=== PATIENT | female | born 1960 | race Caucasian/White ===

== ENCOUNTER 2016-10-05 19:27 | Emergency (ER) | payer MEDICARE, MEDICAID ==
[2016-10-05 19:50] VITALS: BP 171/109
[2016-10-05] MEDS ORDERED: KETOROLAC TROMETHAMINE 60 MG/2 ML VIAL IM ONE ×2 (20:36→20:38)
--- NOTE | 2016-10-05 20:39 | ERNOTE ---
Upper Extremity HPI - Narrative Date of Service: 10/05/16 - General Extremities Pain Location: shoulder: left Time Seen by Provider: 10/05/16 20:21 Source: patient - Immun/Allergies/Home Medications Immunizations: IMMUNIZATION HX Immunizations Up to Date Yes History of Influenza Vaccine No Hx Pneumococcal Vaccination No Allergies/Adverse Reactions: Allergies Allergy/AdvReac Type Severity Reaction Status Date / Time coconut oil Allergy Severe Hives Verified 10/05/16 19:51 peanut Allergy Severe Hives Verified 10/05/16 19:51 tetracycline [Tetracycline] Allergy Severe Hives Verified 10/05/16 19:51 lamotrigine [From Lamictal] Allergy Unknown Verified 10/05/16 19:51 tramadol HCl [From Ultram] Allergy Unknown Other Verified 10/05/16 19:51 Home Medications: HOME MEDICATIONS Budesonide/Formoterol Fumarate [Symbicort 160-4.5 Mcg Inhaler] 2 puff IH BID [Last Taken Unknown] Propranolol HCl [Innopran Xl] 120 mg PO HS 09/23/15 [Last Taken Unknown] Alprazolam [Alprazolam ER] 2 mg PO BID 11/03/15 [Last Taken Unknown] Albuterol Sulfate [Ventolin HFA] 2 puff IH Q4H PRN #1 inhaler 04/13/16 [Last Taken Unknown] - History of Present Illness Narrative: 55-year-old female with a history of multiple visits to the emergency department for various pain syndromes. She states that she is now having tremendous pain in her left shoulder. She states that she has had a history of rotator cuff tears and repairs and it feels the same. She states she had a cortisone injection done a couple days ago in the office but it hasn't helped and she is requesting something for pain. She says she'll be talking to her orthopedic surgeon on Friday. she states that she is allergic to Toradol and that she doesn't do well with Nubain but does not give a suggestion as to what she would like. This pain has been ongoing for the past 3 weeks and I explained to the patient that we do not write prescriptions for pain medication for chronic pain but I would give her an injection this evening Occurred: other - 3 weeks Location of Incident: home Severity: severe - subjective finding. Patient in tears Method of Injury: Reports: other - overuse working on a house doing drywall and swinging a slug hammer Other Injuries: Reports: none Prior Treament: Reports: treated by physician - corticone injection a couple of days ago Review of Systems - Review of Systems Constitutional: Present: no symptoms reported EYE: Present: no symptoms reported ENT: Present: no symptoms reported Respiratory: Present: no symptoms reported Cardiology: Present: no symptoms reported Gastrointestinal/Abdominal: Present: no symptoms reported Genitourinary: Present: no symptoms reported Musculoskeletal: Present: See HPI Skin: Present: no symptoms reported Neurological: Present: no symptoms reported Endocrine: Present: no symptoms reported Hematologic/Lymphatic: Present: no symptoms reported Psych: Present: no symptoms reported - Patient's Past Medical History Patient History - Medical: Alcohol Abuse, Anxiety, Bipolar, Depression, Liver Disease, Migraines Patient History - Cardiac/Respiratory: Asthma, COPD, Hypertension Patient History - Cancer: No Hx of Cancer Patient History - Surgical Procedures: Cholecystectomy, Total Knee Replacement, Other LMP (females 10-50): Menopausal - Social History Living Situations: home Alcohol Use: heavy Drug Use: marijuana Physical Exam - Physical Exam General Appearance: Present: alert, moderate distress Eye Exam: Normal inspection: bilateral, PERRL: bilateral Ears, Nose, Throat: Present: normal ENT inspection, hearing grossly normal, normal pharynx Neck: Present: normal inspection, nontender Respiratory: Present: no respiratory distress, normal breath sounds, no accessory muscle use, chest nontender, lungs clear Cardiovascular/Chest: Present: regular rate, rhythm, no murmur, normal peripheral pulses Gastrointestinal/Abdominal: Present: normal bowel sounds, nontender, nondistended, soft, no organomegaly Rectal Exam: Present: deferred Back Exam: Present: normal inspection, normal range of motion, no CVA tenderness , no vertebral tenderness Extremity Exam: Present: normal inspection, decreased range of motion - and pain in left shoulder Neurological Exam: Present: alert, oriented, normal mood/affect, no motor/ sensory deficits Skin Exam: Present: normal color, warm/dry Lymphatic Exam: Present: no adenopathy ED Progress - Vital Signs Vital Signs: Vital Signs 10/05/16 19:42 Temperature 36.5 C Pulse Rate 97 Respiratory 16 Rate Blood Pressure 171/109 O2 Sat by Pulse 99 Oximetry - Progress/Reassessment Chief Complaint: Upper Extremity Injury/Problem Plan - Plan Plan: Patient originally told us he was allergic to Toradol but it turns out she says she can't take it because she was on Celexa but she is no longer taking her medication. She has not had an allergic reaction to Toradol and therefore will give her 60 mg IM Departure Clinical Impression: Left shoulder pain Qualifiers: Chronicity: chronic Qualified Code(s): M25.512 - Pain in left shoulder; G89.29 - Other chronic pain - Departure Disposition: Home self-care Condition: Fair Instructions: Impingement Syndrome, Rotator Cuff, Bursitis With Rehab-SportsMed Additional Instructions: contact Dr. Chowdary on Friday as planned Referrals: Giovany Alexandra MD [Primary Care Provider] -
== END 2016-10-05 20:50 | disposition home or self-care (01) ==
LOC: ER 19:27
DX: M25.512 Pain in left shoulder (principal); G89.29 Other chronic pain; Z78.0 Asymptomatic menopausal state; Z90.49 Acquired absence of other specified parts of digestive tract; Z96.659 Presence of unspecified artificial knee joint; J44.9 Chronic obstructive pulmonary disease, unspecified; I10 Essential (primary) hypertension; F41.9 Anxiety disorder, unspecified

== ENCOUNTER 2016-11-20 09:18 | Day surgery (SDC) | payer MEDICARE, MEDICAID ==
[~2016-11-20 09:18] MED LIST: ACETAMINOPHEN 500 MG TABLET PO PRN; HYDROmorphone HCL 2 MG/ML VIAL IV PRN; MAG HYDROX/ALUMINUM HYD/SIMETH 30 ML UDC PO PRN; MAGNESIUM HYDROXIDE 30 ML UDC PO PRN; ONDANSETRON HCL/PF 2 MG/ML VIAL IV PRN; PROMETHAZINE HCL 25 MG in DEXTROSE 5 % IN WATER 50 ML IV PRN; RINGERS SOLUTION,LACTATED 1,000 ML IV PRN; ZOLPIDEM TARTRATE 5 MG TABLET PO PRN; ceFAZolin SODIUM 1 GM VIAL IV PRN; diphenhydrAMINE HCL 50 MG/ML VIAL IV PRN; oxyCODONE HCL/ACETAMINOPHEN 1 TAB TABLET PO PRN
--- OUTSIDE RECORDS SUMMARY | 2016-11-20 09:22 | XMS REPORT | Continuity of Care Document ---
:1960 Author Organization [facility] ([facility]) Address [address] [place] [address] Phone [phone] Care Team Providers Name Role Phone Giovany Good Primary Care Provider [phone] Source Comments This disclosure is being made pursuant to the Care Everywhere program, applicable federal and state laws, and may not contain all informaitonavailable regarding this patient.[facility] ([facility]) Active Allergies and Adverse Reactions Allergen Noted Date Severity Reactions Comments Tetracycline Urticaria (Hives) Tramadol Hcl OTHER causes pt to fall asleep Current Medications Prescription Sig. Disp. Refills Start Date End Date Status albuterol Use 2 Puffs by 2 Inhaler 1 07/25/2011 Active (PROVENTIL, inhalation every 6 VENTOLIN) 90 hours as needed. mcg/Actuation Indications: inhaler Bronchial Asthma rOPINIRole 2 mg Take 2 mg by mouth Active tablet at bedtime as needed topiramate 100 mg Take 200 mg by Active tablet mouth 2 times daily propranolol 120 mg Take 120 mg by Active XR capsule mouth at bedtime SYMBICORT 160-4.5 Use 1 Puff by 11 07/05/2015 Active mcg/Actuation inhalation daily inhaler ALPRAZolam 2 mg Take 1 tablet by 5 02/10/2016 Active tablet mouth 2 times daily. omeprazole 20 mg Take 2 capsules 180 capsule 3 03/07/2016 Active enteric coated (40 mg total) by capsule mouth daily. 30 minutes before a meal Active Problems Problem Noted Date Diarrhea 06/15/2013 Hypokalemia 06/15/2013 HTN (hypertension) 06/25/2011 Hepatitis C GT 1 Peg 90, Riba 600 Boceprevir 06/25/2011 Overview: Formatting of this note may be different from the original. 11/30/2012 09:35 01/12/2013 6 w (BCV started) 02/09/2013 10 W HCV QUANT, LOG IU/mL 5.83 4.70 POS<1.63 RI 6 WEEK lead in, BCV week 4-24 (24 weeks) HCV GENOTYPINGGenotype: 1 07/16/2012 Lab Results Component Value Date HEPC REACTIVE* 04/03/2010 HEPC REACTIVE* 10/01/2001 Last Assessment & Plan: She will continue Boceprevir Pegasys and Ribavirin till week 36 and RI till w 48 Depressive disorder, not elsewhere classified 03/25/2002 Resolved Problems Problem Noted Date Resolved Date Knee pain 11/16/2012 04/20/2013 Shoulder pain 11/16/2012 04/20/2013 Right shoulder pain 07/26/2011 04/20/2013 Menorrhagia 06/25/2011 04/20/2013 Restless legs 06/25/2011 04/20/2013 Constipation 06/25/2011 04/20/2013 Dental caries 03/08/2011 06/25/2011 Dental abscess 03/08/2011 04/20/2013 PAIN IN LIMB 04/03/2010 04/20/2013 Other physical therapy 02/27/2010 02/27/2010 PAIN IN LIMB 02/27/2010 02/27/2010 CLASSICAL MIGRAINE INTRACTABLE 03/25/2002 04/20/2013 ROTATOR CUFF SYND NOS 12/09/2001 04/20/2013 ARTHROPATHY NOS-SHLDER 11/18/2001 04/20/2013 Most Recent Encounters Date Type Specialty Providers Description 10/07/2016 Office Visit Med GI/Hepatology Sayra, Dx: Chronic MD Prasanna hepatitis C without hepatic coma 10/07/2016 Hospital Encounter Radiology Giovany Amador MD Dx: Chronic hepatitis C without hepatic coma 10/07/2016 Telephone Med GI/Hepatology Sayra, Dx: Elevated liver MD Prasanna enzymes (Primary Dx) 09/16/2016 Office Visit Med GI/Hepatology Sayra, Chief Comp: Patient MD Prasanna Reported Reason For Visit Immunizations Name Dates Previously Given Next Due Hep A-Hep B (Twinrix) 05/10/2010 Hepatitis A, adult 09/15/2009 Hepatitis B, adult 11/17/2009,09/15/2009 Influenza, quadrivalent PF 08/10/2013 Social History Tobacco Use Types Packs/Day Years Used Date Current Every Day Smoker Cigarettes 0.5 41 Smokeless Tobacco: Never Used Tobacco Cessation:Ready to Quit: No; Counseling Given: Yes Comments: Alcohol Use Drinks/Week oz/Week Comments Yes quit 11/2012 Last Filed Vital Signs Vital Sign Reading Time Taken Blood Pressure 152/102 10/07/2016 9:08 AM [employer] Pulse 80 10/07/2016 9:08 AM [employer] Temperature 36.6 C (97.9 F) 10/07/2016 9:08 AM [employer] Respiratory Rate 18 07/19/2015 4:36 PM CDT Height 1.651 m (5' 5") 10/07/2016 9:08 AM [employer] Weight 74.25 kg (163 lb 11.1 oz) 10/07/2016 9:08 AM [employer] Body Mass Index 27.24 10/07/2016 9:08 AM [employer] Oxygen Saturation 98% 07/19/2015 4:36 PM CDT Plan of Care Date Type Specialty Providers Description 02/10/2017 Appointment Med GI/Hepatology Prasanna Colbert, Subj: Appointment Scheduled [address] [place] [address] [phone] (Fax) Health Maintenance Due Date Last Done Comments Tdap Vaccine 1969 MMR Vaccine 1976 Pneumococcal Vaccine (1 of 1 1977 - PPSV23) Hepatitis B Vaccine (3 of 3 07/05/2010 05/10/2010, - Primary Series) 11/17/2009, 09/15/2009 Cervical Cancer Screening 06/25/2014 06/25/2011, 10/14/2001 Influenza Vaccine: Seasonal 04/29/2016 08/10/2013 (#1) Mammogram 06/02/2016 06/02/2015, Additional history exists 06/02/2015 (Previously completed), 06/25/2011 Lipid Disorder Screening 04/20/2018 04/20/2013, Additional history exists 03/12/2011, 03/28/2009 Td Vaccine 03/12/2019 03/12/2009 (Previously completed) Colonoscopy 07/19/2025 07/19/2015 HCV Screening Completed 04/03/2010, 10/01/2001 Results from Last 3 Months ALPHA-FETOPROTEIN (10/07/2016 9:02 AM) Component Value Range AFP 10.0(H) 0.0-9.0 ng/mL Specimen Blood BASIC METABOLIC PANEL (W/ CALCIUM TOTAL) (10/07/2016 9:02 AM) Component Value Range Sodium 139 135-145 mEq/L Potassium 3.6 3.5-5.0 mEq/L Chloride 99 95-107 mEq/L CO2 27 22-29 mEq/L Anion Gap 13 8-18 mEq/L BUN 9(L) 10-20 mg/dL Creatinine 0.8Comment: 0.5-1.0 mg/dL Creatinine switched to enzymatic method on 02/05/2011.GFR equation switched to IDMS-traceable MDRD equation on 02/05/2011. Calculated GFR values are not valid in clinical settings where serum creatinine is changing. Glucose 80Comment: 65-99 mg/dL The Expert Committee on the Diagnosis and Classification of Diabetes has defined impaired fasting glucose as greater than or equal to 100 mg/dL but less than 126 mg/dL.(Diabetes Care 28 (Suppl 1)S41,2005) Calcium 9.1 8.5-10.5 mg/dL Calculated GFR 74 >60 mL/min/1.73 m2 Specimen Blood TOTAL PROTEIN (10/07/2016 9:02 AM) Component Value Range Total Protein 6.7 6.0-8.0 g/dL Specimen Blood ALBUMIN (10/07/2016 9:02 AM) Component Value Range Albumin 3.8 3.4-4.8 g/dL Specimen Blood LACTATE DEHYDROGENASE (LDH) (10/07/2016 9:02 AM) Component Value Range LDH 261(H) 135-214 U/L Specimen Blood GAMMA GLUTAMYLTRANSPEPTIDASE (10/07/2016 9:02 AM) Component Value Range GGT 106(H) 5-36 U/L Specimen Blood ALKALINE PHOSPHATASE (10/07/2016 9:02 AM) Component Value Range ALP 136(H) 35-104 U/L Specimen Blood BILIRUBIN, TOTAL (10/07/2016 9:02 AM) Component Value Range Bilirubin Total 0.7 <=1.2 mg/dL Specimen Blood BILIRUBIN, DIRECT (10/07/2016 9:02 AM) Component Value Range Bilirubin, Direct 0.2 0.0-0.2 mg/dL Specimen Blood ALANINE AMINOTRANSFERASE (10/07/2016 9:02 AM) Component Value Range ALT 115(H)Comment: 0-33 U/L The upper limit of normal for alanine aminotransferase (ALT) reference ranges for adults is controversial with some authorities recommending limit as low as 30 U/L for males and 19 U/L for females. Th ere is increased incidence of subclinical liver disease (e.g., early steatohepatitis) in patients with ALT values in the range of 31-41 U/L for males and 20-33 U/L for females. ALT values should alway s be interpreted in conjunction with clinical history, physical examination findings, and, if applicable, data from other diagnostic tests. Specimen Blood ASPARTATE AMINOTRANSFERASE (10/07/2016 9:02 AM) Component Value Range AST 85(H)Comment: 0-32 U/L Adult reference ranges updated on 08/24/13 at 830am Specimen Blood PT/INR (PROTHROMBIN TIME/INR) VENOUS (10/07/2016 9:02 AM) Component Value Range PT (Prothrombin Time) 12 9-12 secs INR 1.2 <4.0 Specimen Blood CBC (COMPLETE BLOOD COUNT) (10/07/2016 9:02 AM) Component Value Range WBC Count 13.3(H) 3.7-10.5 K/MM3 RBC Count 5.37(H) 4.00-5.20 M/MM3 Hemoglobin 15.6(H) 11.9-15.5 g/dL Hematocrit 47 35-47 % MCV (Mean Corpuscular Volume) 88 82-99 FL MCH (Mean Corpuscular Hemoglobin) 29 25-35 PG MCHC (Mean Corpuscular Hemoglobin Concentration) 33 32-36 % Platelet Count 196 150-400 K/MM3 MPV (Mean Platelet Volume) 11.4 9.4-12.3 FL RBC Dist Width-STD 42.6 36.4-46.3 FL RBC Distrib Width 13.2 9.0-14.5 % Nucleated RBC 0 /100 WBC Specimen Blood US RIGHT UPPER QUADRANT (RUQ) (10/07/2016 8:38 AM) Impressions Impression: 1. Cirrhotic liver without focal liver lesions. --- Final --- Narrative [facility] Department of Radiology Ultrasound Division [address] [place] [address] ULTRASOUND REPORT NAME:JAMES OBANDO Date of Service: 10/07/2016 MRN NO.: [id number] Date: 10/07/2016 Patient's : 1960 Resident/Tech: [id number] Salvador Light Patient's Age: 55 yearsReferring MD:PRASANNA COLBERT Indication: 55 y/o female with HCV/Cirrhosis. Please do follow up u/s. Assess for changes, HCC. thank you Dx Code: Chronic hepatitis C without hepatic coma [B18.2]. Technique: Liver, spleen, ascites surveillance grayscale ultrasound. Findings: Liver: +---------+ + +--------+ + :Size (cm):Echogenicity:Echotexture:Shape :Vascularity: +---------+ + +--------+ + :18.2 :Increased.:Normal.:Nodular.:Normal.: +---------+ + +--------+ + Liver Doppler: + +-------+ +---------+ : :Patency:Waveform :Velocity : + +-------+ +---------+ :Main Portal Vein :Patent :Normal biphasic antegrade: : + +-------+ +---------+ :Right Portal Vein:Patent :Normal phasic:Antegrade: + +-------+ +---------+ :Left Portal Vein :Patent :Normal phasic:Antegrade: + +-------+ +---------+ :Splenic Vein :Patent :Normal biphasic:Antegrade: + +-------+ +---------+ :Hepatic Veins:Patent :Normal triphasic :Antegrade: + +-------+ +---------+ :IVC:Patent :Normal triphasic : Antegrade: + +-------+ +---------+ + +--------+ ::Waveform: + +--------+ :Hepatic artery:Normal: + +--------+ Spleen: Scattered small hyperechogenic foci consistent with granulomas. Spleen measures 10.2 x 9.9 x 4.2 cm. Ascites: Mild ascites in the pelvis. Procedure Note Liang, Incoming Imaging Results - FriOct 07, 2016 2:01 PM [employer] [facility] Department of Radiology Ultrasound Division [address] [place] [address] ULTRASOUND REPORT NAME: JAMES OBANDO Date of Service: 10/07/2016 MRN NO.: [id number] Review Date: 10/07/2016 Patient's : 1960 Resident/Tech: [id number] [employer] Patient's Age: 55 years Referring MD: PRASANNA COLBERT Indication: 55 y/o female with HCV/Cirrhosis. Please do follow up u/s.Assess for changes, HCC. thank you Dx Code: Chronic hepatitis C without hepatic coma [B18.2]. Technique: Liver, spleen, ascites surveillance grayscale ultrasound. Findings: Liver: +---------+ + +--------+ + :Size (cm):Echogenicity:Echotexture:Shape :Vascularity: +---------+ + +--------+ + :18.2 :Increased. :Normal. :Nodular.:Normal. : +---------+ + +--------+ + Liver Doppler: + +-------+ +---------+ : :Patency:Waveform :Velocity : + +-------+ +---------+ :Main Portal Vein :Patent :Normal biphasic antegrade: : + +-------+ +---------+ :Right Portal Vein:Patent :Normal phasic :Antegrade: + +-------+ +---------+ :Left Portal Vein :Patent :Normal phasic :Antegrade: + +-------+ +---------+ :Splenic Vein :Patent :Normal biphasic :Antegrade: + +-------+ +---------+ :Hepatic Veins :Patent :Normal triphasic :Antegrade: + +-------+ +---------+ :IVC :Patent :Normal triphasic :Antegrade: + +-------+ +---------+ + +--------+ : :Waveform: + +--------+ :Hepatic artery:Normal : + +--------+ Spleen: Scattered small hyperechogenic foci consistent with granulomas. Spleen measures 10.2 x 9.9 x 4.2 cm. Ascites: Mild ascites in the pelvis. IMPRESSION Impression: 1. Cirrhotic liver without focal liver lesions. --- Final ---
[2016-11-20] MEDS ORDERED: RINGERS SOLUTION,LACTATED 1,000 ML IV ONE (10:35)
[2016-11-20] MEDS: RINGERS SOLUTION,LACTATED 1,000 ML IV ONE (11:30)
[2016-11-20] MEDS ORDERED: LABETALOL HCL 5 MG/ML VIAL IV ONE (14:45)
[2016-11-20 15:07] VITALS: BP 155/90
[2016-11-20] MEDS ORDERED: SENNOSIDES/DOCUSATE SODIUM 1 TAB TABLET PO SCH (21:00)
--- NOTE | 2016-11-21 08:34 | OR ---
Operative Report - Dictated Report Narrative: Date: 11/20/2016 Physician: Sukhdev Chowdary M.D. Infant Childcare Provider: London Burk PA-C Preoperative diagnosis: Left Shoulder massive rotator cuff tear Postoperative diagnosis: Left Shoulder massive rotator cuff tear, degenerative labral tear, shoulder arthrosis Procedure: Left shoulder arthroscopy with mini open rotator cuff repair of massive rotator cuff tear and debridement of labrum Anesthesia: General plus regional Complications: None Estimated blood loss: Minimal Specimens: None Retained implants: [employer] 4.5 mm peek helicoil anchor 2, footprint anchor 2 Drains: None Indications: Mrs. Deshpande Is a 55 year-old female who has been followed in my clinic with complaints of shoulder pain consistent rotator cuff. Physical exam and diagnostic imaging were consistent with his complaints and concern for full- thickness rotator cuff tear. Conservative measures have failed including, but not limited to, passage of time, activity modification, medications, physical therapy/home exercise program, or injections. The risks, benefits, and alternatives were discussed in clinic. The risks being , bleeding, infection, blood clots, nerve, tendon, ligament, blood vessel injury, persistent pain, arthrosis, stiffness, need for prolonged therapy, need for additional procedures, and persistent symptoms. Consent was obtained in the clinic. Procedure: After marking the correct extremity in the preoperative holding area, a timeout was performed in the operating room. IV antibiotics consisting of Ancef were administered prior to the procedure. A general followed by regional anesthetic was induced by the nurse assistant basketball coach. This was in the supine position, then the patient was transitioned to a beachchair position with all bony prominences well-padded, head in neutral, the nonoperative arm well supported, and the legs padded with SCDs in place. The operative shoulder was then prepped and draped in a standard sterile fashion. Preoperatively the shoulder had full passive range of motion, and no gross instability. After marking out the bony landmarks , saline was infused into the joint through a posterior lateral portal site. A pablo incision was made, and the blunt trocar and cannula was introduced into the shoulder joint. An accessory portal was placed in the rotator cuff interval using a spinal needle for guidance. Upon initial evaluation, the biceps tendon showed noted. Tendinopathy. The middle glenohumeral ligament was frayed but intact. Subscapularis tendon was and unremarkable. The glenoid showed moderate degenerative change. The humeral head articular surface showed moderate canal changes. The anterior labrum was frayed and torn. The superior labrum was frayed. The pouch was unremarkable. The posterior labrum was frayed. The supraspinatus tendon was torn and retracted involving the entire supraspinatus. The infraspinatus tendon was torn and retracted. Utilizing a lateral as well as the anterior portal a shaver was utilized in order to debride the labrum and the greater tuberosity as well as rotator cuff tendon. Attention was then turned to the subacromial space. Subacromial bursectomy was performed utilizing the prior portals. The coracoacromial ligament was unremarkable. The bursal side of the rotator cuff demonstrated full-thickness tear as identified intra-articularly. The acromial arch was unremarkable. Based on the arthroscopic findings, as well as exam and radiographic findings, it was elected to proceed with a mini open rotator cuff repair. A longitudinal incision centered over the previously identified rotator cuff tear was made just off the edge of the acromion. This was approximately 6 centimeters in length. The deltoid fascia was split sharply in line with its fibers, and blunt dissection was carried through the deltoid muscle. Any remaining subacromial bursal tissue was debrided in order to expose the underlying rotator cuff tear. The tuberosity was debrided of its soft tissues producing a bleeding bed for the tendon to be secured to. 2 4.5 mm PEEK helicoil anchor was placed just off the articular surface of the humeral head. A series of horizontal mattress sutures were placed at the prepared edge of the rotator cuff. This allowed for a tension-free return of the tendon to the greater tuberosity. The sutures were then passed longitudinally into to 4.5 mm PEEK footprint anchor. This was performed and a suture bridge technique. This gave good overall compression to the rotator cuff at the insertion site. The shoulders place a range of motion and had no lift off of the repair site as well as no crepitance or signs of impingement. Full passive range of motion was able to be obtained. Once it was felt that the rotator cuff was adequately repaired, the wounds were thoroughly irrigated. 0 Vicryl was utilized in order to repair the deltoid fascia. 3-0 Vicryl was placed in the subcutaneous tissue. The rotator cuff incision as well as the portal sites were closed with interrupted nylon. Dressings consisting of Xeroform, 4 x 4, ABD, soft roll, and tape were applied. All sponge, needle, blade, and instrument counts were correct prior to closing the wounds. The patient was awoken and transferred to the postanesthesia care unit in stable condition.
== END 2016-11-20 09:19 | disposition home or self-care (01) ==
LOC: AMB 09:18
PROVIDERS: ATTEND Orthopaedic Surgery
PROC: 0LQ20ZZ Repair Left Shoulder Tendon, Open Approach (ICD-10-PCS; 2016-11-20)
PROC: 0RBK4ZZ Excision of Left Shoulder Joint, Percutaneous Endoscopic Approach (ICD-10-PCS; principal; 2016-11-20 11:15)
DX: M75.112 Incomplete rotator cuff tear or rupture of left shoulder, not specified as traumatic (principal); S43.492A Other sprain of left shoulder joint, initial encounter; I10 Essential (primary) hypertension; J45.909 Unspecified asthma, uncomplicated; J44.9 Chronic obstructive pulmonary disease, unspecified; F31.9 Bipolar disorder, unspecified; F41.9 Anxiety disorder, unspecified; F17.200 Nicotine dependence, unspecified, uncomplicated; Z68.29 Body mass index [BMI] 29.0-29.9, adult

== ENCOUNTER 2017-06-21 20:52 | Emergency (ER) | payer MEDICARE, MEDICAID ==
[2017-06-21 21:01] VITALS: BP 160/103
[2017-06-21] MEDS ORDERED: DIPHTH,PERTUSS(ACELL),TET VAC 0.5 ML VIAL IM ONE ×2 (21:20→21:21)
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
== END 2017-06-21 21:40 | disposition home or self-care (01) ==
LOC: ER 20:52
DX: S81.812A Laceration without foreign body, left lower leg, initial encounter (principal); W27.8XXA Contact with other nonpowered hand tool, initial encounter; Y93.9 Activity, unspecified; Y92.009 Unspecified place in unspecified non-institutional (private) residence as the place of occurrence of the external cause; Z23 Encounter for immunization; F41.8 Other specified anxiety disorders

== ENCOUNTER 2017-07-07 06:10 | Inpatient (IN) | payer MEDICARE, MEDICAID ==
[~2017-07-07 06:10] MED LIST changes: -ACETAMINOPHEN 500 MG TABLET PO PRN; -HYDROmorphone HCL 2 MG/ML VIAL IV PRN; -MAG HYDROX/ALUMINUM HYD/SIMETH 30 ML UDC PO PRN; -MAGNESIUM HYDROXIDE 30 ML UDC PO PRN; +MORPHINE SULFATE 15 MG TABLET.SA PO PRN; -ONDANSETRON HCL/PF 2 MG/ML VIAL IV PRN; -PROMETHAZINE HCL 25 MG in DEXTROSE 5 % IN WATER 50 ML IV PRN; -RINGERS SOLUTION,LACTATED 1,000 ML IV PRN; -ZOLPIDEM TARTRATE 5 MG TABLET PO PRN; -ceFAZolin SODIUM 1 GM VIAL IV PRN; -diphenhydrAMINE HCL 50 MG/ML VIAL IV PRN; -oxyCODONE HCL/ACETAMINOPHEN 1 TAB TABLET PO PRN
[2017-07-07] MEDS: RINGER'S SOLUTION,LACTATED 1,000 ML IV PRN ×2 (06:54→07:50)
[2017-07-07] MEDS: VANCOMYCIN HCL 1 GM in DEXTROSE 5 % IN WATER 250 ML IV PRN ×4 (07:13→07:50)
[2017-07-07] MEDS ORDERED: RINGER'S SOLUTION,LACTATED 1,000 ML IV ONE (10:00)
[2017-07-07] MEDS ORDERED: ONDANSETRON HCL/PF 2 MG/ML VIAL IV PRN (10:52)
[2017-07-07] MEDS ORDERED: DEXTROSE 5%-LACTATED RINGERS 1,000 ML IV PRN (10:52)
[2017-07-07] MEDS ORDERED: MAG HYDROX/ALUMINUM HYD/SIMETH 30 ML UDC PO PRN ×2 (10:52→17:40)
[2017-07-07] MEDS ORDERED: MAGNESIUM HYDROXIDE 30 ML UDC PO PRN (10:52)
[2017-07-07] MEDS ORDERED: diphenhydrAMINE HCL 50 MG/ML VIAL IV PRN (10:52)
[2017-07-07] MEDS ORDERED: PROMETHAZINE HCL 5 MG in DEXTROSE 5 % IN WATER 50 ML IV PRN ×2 (10:52)
[2017-07-07] MEDS ORDERED: MORPHINE SULFATE 2 MG/ML DISP.SYRIN IV PRN (10:52)
[2017-07-07] MEDS ORDERED: oxyCODONE HCL/ACETAMINOPHEN 1 TAB TABLET PO PRN (10:52)
[2017-07-07] MEDS ORDERED: ACETAMINOPHEN 500 MG TABLET PO PRN (10:52)
[2017-07-07] MEDS ORDERED: ceFAZolin SODIUM 1 GM in DEXTROSE 5 % IN WATER 100 ML IV SCH ×2 (12:53)
--- NOTE | 2017-07-07 14:14 | OR ---
Anesthesia Procedure Note - Anesthesia Procedure Note Date of Service: 07/07/17 Narrative: Vital Signs - Last Taken Temp 37.1 C 07/07/17 12:12 Pulse 112 H 07/07/17 12:45 Resp 18 07/07/17 12:45 BP 131/87 07/07/17 12:45 Pulse Ox 96 07/07/17 12:45 O2 Oxygen Delivery Method Room Air 07/07/17 14:12 ANESTHESIA PROCEDURE NOTE Date of Procedure: 07/17/2017 Time of procedure: . Performed by: BORIS Torres CRNA, MSN Abrading Machine Tender: Cinthya Wick RN. Preprocedure diagnosis: Left interscalene block with ultrasound guidance. Post procedure diagnosis: Same. Procedure: Left Interscalene nerve block. Indications: Post shoulder replacement pain relief. Findings: See below. Details of the procedure: The patient was brought to OR #4 and placed in semi- Fowlers position. The patient was prepped with chlorhexidine and using ultrasound guidance the left interscalene segment of the brachial plexus was identified and lidocaine 1% was infiltrated to the skin of the intended injection site. Under ultrasound guidance the interscalene nerve bundles were approached until a shoulder/arm response was identified on nerve stimulator. Once the stimulator response was effective at less than 0.5 mV and greater than 0.3 mV the femoral nerve was surrounded with 30 mL bupivacaine 0.5% with 1-200, 000 epinephrine. Please see radiology/ultrasound report for details and images of the procedure. EBL: 0 Fluids: N/A. Specimen: N/A. Post procedure condition: The patient tolerated the procedure well. No complications were noted. Thank you for this consultation. Shakir Daugherty CRNA, ARNP, MSN
[2017-07-07] MEDS ORDERED: POTASSIUM CHLORIDE 10 MEQ TABLET.SA PO PRN (17:40)
[2017-07-07] MEDS ORDERED: CYCLOBENZAPRINE HCL 10 MG TABLET PO PRN (17:40)
[2017-07-07] MEDS ORDERED: LIDOCAINE 35 APPL TUBE TP PRN (17:40)
[2017-07-07] MEDS ORDERED: rOPINIRole HCL 1 MG TABLET PO PRN (17:40)
[2017-07-07] MEDS ORDERED: LINACLOTIDE 72 MCG PO PRN (17:40)
[2017-07-07] MEDS ORDERED: ALBUTEROL SULFATE 2.5 MG/0.5 ML VIAL.NEB IH PRN (17:40)
[2017-07-07] MEDS ORDERED: ALPRAZolam 1 MG TABLET PO STA (17:45)
[2017-07-07] MEDS ORDERED: CITALOPRAM HYDROBROMIDE 20 MG TABLET PO STA (17:45)
--- NOTE | 2017-07-07 17:49 | PN ---
Subjective - Date and Time Seen Date: 07/07/17 Time: 17:46 Subjective Narrative: Doing very well post op. No pain. Going to he bathroom post op. Hasn't had any of her home meds yet. Anticipates home tomorrow. Objective - Review of Systems Generalized/Overall Review: Reports: No Symptoms Reported EENTM: Reports: No Symptoms Reported Respiratory: Reports: No Symptoms Reported Cardiac: Reports: No Symptoms Reported Abdominal: Reports: No Symptoms Reported Genitourinary Symptoms: Reports: No Symptoms Reported Musculoskeletal Complaints: Reports: No Symptoms Reported Neurological: Reports: No Symptoms Reported Skin: Reports: No Symptoms Reported Endocrine: Reports: No Symptoms Reported Misc: All systems neg except as marked - Vitals Vitals: Last Vital Signs Selected Entries 07/07/17 16:21 Temperature 37.0 C Pulse Rate 106 H Respiratory 18 Rate Blood Pressure 128/76 O2 Sat by Pulse 97 Oximetry Oxygen Delivery Room Air Method - Exam Constitutional: Present: Alert, Oriented x3, Cooperative, Well developed, Well nourished, No distress ENT Exam: Present: normal ENT inspection, hearing grossly normal Neck: Present: normal inspection Respiratory: Present: lungs clear, normal breath sounds Cardiovascular/Chest: Present: regular rate, rhythm, no murmur Abdomen: Present: Normal bowel sounds, soft, nontender, nondistended, no rebound tenderness, no hepatospenomegaly, no masses Extremity: Present: other - brace on left shoulder Neurologic: Present: alert, oriented x 3 Appearance: Present: appropriate appearance, appropriate insight, neat, no memory impairment Eye contact: Present: cooperative, good eye contact, normal speech Assessment/Plan Plan Narrative: Follow post op protocol - Problems/Diagnosis (1) Arthropathy of left shoulder Problem: Acute
[2017-07-07] MEDS: oxyCODONE HCL/ACETAMINOPHEN 1 TAB TABLET PO PRN (19:02)
[2017-07-07] MEDS ORDERED: VANCOMYCIN HCL 1 GM in DEXTROSE 5 % IN WATER 250 ML IV ONE ×2 (20:00)
[2017-07-07] MEDS: OXYMETAZOLINE HCL 150 SPRAY BTL NS SCH (20:40)
[2017-07-07] MEDS: FLUTICASONE/SALMETEROL 14 PUFF DISK.W.DEV IH SCH (20:40)
[2017-07-07] MEDS ORDERED: SENNOSIDES/DOCUSATE SODIUM 1 TAB TABLET PO SCH (21:00)
[2017-07-07] MEDS ORDERED: PROPRANOLOL HCL 60 MG CAPSULE.SA PO SCH (21:00)
[2017-07-08] MEDS: oxyCODONE HCL/ACETAMINOPHEN 1 TAB TABLET PO PRN ×2 (04:27→08:35)
[2017-07-08 06:04] LABS: Hematocrit 32.1 % (37.0-47.0); Hemoglobin 10.6 gm/dL (12.5-16.0); Mean Cell Volume 90.7 fl (78-100); Mean Corpuscular Hemoglobin 29.9 pg (27-31); Platelet Count 136 K/mm3 (150-450); Red Blood Count 3.54 M/mm3 (4.2-5.4); Red Cell Distribution Width 12.3 % (11.5-14.0); White Blood Count 14.4 K/mm3 (4.0-10.5)
[2017-07-08 06:20] LABS: Anion Gap 7.3 mmol/L (6.8-13.8); BUN/Creatinine Ratio 16.7 (9.0-21.6); Calcium * 8.5 mg/dL (7.9-10.9); Estimated Creat Clear 76.6; Potassium 4.3 mmol/L (3.4-4.6)
[2017-07-08 07:09] VITALS: BP 117/73
--- NOTE | 2017-07-08 07:39 | PN ---
Subjective - Date and Time Seen Date: 07/08/17 Time: 07:34 Subjective Narrative: Doing very well post op. Shoulder soria a little now. Using her pain pills a little now. Going to the bathroom post op. Wonders if she's going home today. Objective - Review of Systems Generalized/Overall Review: Reports: No Symptoms Reported EENTM: Reports: No Symptoms Reported Respiratory: Reports: No Symptoms Reported Cardiac: Reports: No Symptoms Reported Abdominal: Reports: No Symptoms Reported Genitourinary Symptoms: Reports: No Symptoms Reported Musculoskeletal Complaints: Reports: Other - some pain in shoulder Neurological: Reports: No Symptoms Reported Skin: Reports: No Symptoms Reported Endocrine: Reports: No Symptoms Reported Misc: All systems neg except as marked - Vitals Vitals: Last Vital Signs Selected Entries 07/08/17 07:07 Temperature 36.8 C Temperature Oral Source Pulse Rate 68 Respiratory 18 Rate Blood Pressure 117/73 Blood Pressure Supine Position O2 Sat by Pulse 97 Oximetry Oxygen Delivery Room Air Method - Abnormal Lab Findings Abnormal Lab Findings: Abnormal Lab Results 07/08/17 Range/Units 05:45 WBC 14.4 H (4.0-10.5) K/mm3 RBC 3.54 L (4.2-5.4) M/mm3 Hgb 10.6 L (12.5-16.0) gm/dL Hct 32.1 L (37.0-47.0) % Plt Count 136 L (150-450) K/mm3 MPV 11.0 H (6.0-9.5) fl - Exam Constitutional: Present: Alert, Oriented x3, Cooperative, Well developed, Well nourished, No distress ENT Exam: Present: normal ENT inspection, hearing grossly normal Neck: Present: normal inspection Respiratory: Present: lungs clear, no respiratory distress Cardiovascular/Chest: Present: regular rate, rhythm, no edema Abdomen: Present: Normal bowel sounds, soft, nontender, nondistended, no rebound tenderness, no hepatospenomegaly, no masses Extremity: Present: other - in shoulder brace Appearance: Present: appropriate appearance, appropriate insight, neat, no memory impairment Eye contact: Present: cooperative, good eye contact, normal speech Thoughts: Present: normal thought pattern Assessment/Plan Plan Narrative: follow post op protocol - Problems/Diagnosis (1) Arthropathy of left shoulder Problem: Acute
[2017-07-08] MEDS: OXYMETAZOLINE HCL 150 SPRAY BTL NS SCH (08:04)
[2017-07-08] MEDS: FLUTICASONE/SALMETEROL 14 PUFF DISK.W.DEV IH SCH (08:04)
--- NOTE | 2017-07-08 08:16 | DS ---
(1) Arthropathy of left shoulder Problem: Acute (2) Asthmatic bronchitis , chronic Problem: Chronic (3) Left shoulder pain Problem: Chronic Qualifiers: Chronicity: chronic Qualified Code(s): M25.512 - Pain in left shoulder; G89.29 - Other chronic pain (4) PUD (peptic ulcer disease) Problem: Chronic Description of Stay: Mrs. Deshpande was admitted 07/07/2017 after undergoing reverse left total shoulder arthroplasty. She is noted for IV antibiotics and pain control. On postoperative day 1 pain was adequately controlled on oral pain regimen. She decreasing drainage noted in drain and drain was pulled prior to discharge. Postoperative labs BNP was normal, and hemogram showed reactive leukocytosis with white count of 14,400, hemoglobin of 10.6. Examination of her left upper extremity revealed neurovascular intact. She was afebrile through course of stay. She was discharged on Percocet for pain. She is to resume her home medications. She is to keep her incision clean and dry until staple removal in our office in approximately 2 weeks. She is to call with any concerns sooner. She is discharged home in stable condition. She is to start physical therapy in an outpatient basis for passive shoulder range of motion instructed on no external rotation beyond neutral. She can begin active elbow and wrist range of motion with no lifting greater than a couple pounds and her left hand. Procedures Performed: see notes below List Procedures: Left reverse total shoulder replacement Discharge Disposition: Home self care Disposition: Home self-care Condition: Good Discharge Activity: Activity as tolerated Discharge Diet: General/regular food Usp Therapy: Physicial Therapy Additional Patient Instructions (free text): Follow-up in the office with Dr. Chowdary on 07/22/17@9:45am. Prescriptions (Any new or edited meds): oxyCODONE HCL/ACETAMINOPHEN [Percocet 5 MG/325 MG] 2 tab PO Q4H PRN #90 tablet PRN Reason: Moderate Pain Complete Home Medications List: Complete Home Medication List: ALPRAZolam [Xanax] 2 mg PO BID 11/07/16 Albuterol Sulfate [Ventolin HFA] 2 puff IH Q4H PRN 11/07/16 Budesonide/Formoterol Fumarate [Symbicort 160-4.5 Mcg Inhaler] 2 puff IH BID 06/15 rOPINIRole HCL [Requip] 2 tab PO HS PRN 11/07/16 Citalopram Hydrobromide [Celexa] 40 mg PO DAILY 06/27/17 Cyclobenzaprine HCl [Flexeril] 10 mg PO Q12H PRN 06/27/17 Fluticasone Propionate [Flonase] 1 spray NS DAILY 06/27/17 Lidocaine [Lidocaine Ointment] 1 applic TP QID 06/27/17 Linaclotide [Linzess] 72 mcg PO DAILY PRN 06/27/17 Oxymetazoline HCl [Afrin Nasal [place]] 2 sprays NS BID 06/27/17 Potassium Chloride [K-Tab ER] 8 meq PO DAILY PRN 06/27/17 Propranolol HCl [Inderal LA] 60 mg PO HS 06/27/17 Magnesium Carb/Aluminum Hydrox [Gaviscon Es Tablet Chew] 1 each PO PRN PRN 07/07 oxyCODONE HCL/ACETAMINOPHEN [Percocet 5 MG/325 MG] 2 tab PO Q4H PRN #90 tablet 07/08/17
[2017-07-08] MEDS ORDERED: CITALOPRAM HYDROBROMIDE 20 MG TABLET PO SCH (09:00)
[2017-07-08] MEDS ORDERED: ALPRAZolam 1 MG TABLET PO SCH (09:00)
[2017-07-08] MEDS ORDERED: FLUTICASONE PROPIONATE 120 SPRAY INHALER NS SCH (09:00)
== END 2017-07-08 10:45 | disposition home or self-care (01) | DRG 483 ==
LOC: MS 06:10
PROVIDERS: ADMIT Orthopaedic Surgery; ATTEND Orthopaedic Surgery
PROC: 0RRK00Z Replacement of Left Shoulder Joint with Reverse Ball and Socket Synthetic Substitute, Open Approach (ICD-10-PCS; principal; 2017-07-07 08:00)
DX: M19.012 Primary osteoarthritis, left shoulder (principal); I10 Essential (primary) hypertension; J44.9 Chronic obstructive pulmonary disease, unspecified; J45.40 Moderate persistent asthma, uncomplicated; K27.7 Chronic peptic ulcer, site unspecified, without hemorrhage or perforation; Z87.891 Personal history of nicotine dependence

== ENCOUNTER 2017-08-01 10:25 | Day surgery (SDC) | payer MEDICARE, MEDICAID ==
[~2017-08-01 10:25] MED LIST changes: -MORPHINE SULFATE 15 MG TABLET.SA PO PRN; +RINGER'S SOLUTION,LACTATED 1,000 ML IV PRN; +ceFAZolin SODIUM 1 GM VIAL IV PRN
[2017-08-01] MEDS ORDERED: BUPIVACAINE HCL/EPINEPHRINE 50 ML VIAL IJ ONE ×2 (14:45)
[2017-08-01] MEDS ORDERED: RINGER'S SOLUTION,LACTATED 1,000 ML IV ONE (15:05)
--- NOTE | 2017-08-01 15:06 | POSTOP NO ---
Date of Surgery: 08/01/17 Stop Time: 15:04 Anesthesia: MAC Patient Tolerated the Procedure: Well Post Operative Diagnosis/Procedures: Post Operative Diagnosis: Wound drainage left shoulder Procedure Performed: Repeat closure and excision of prior scar of left shoulder wound 13 cm with irrigation Supervisor [employer]: London Burk PA-C Estimated Blood Loss: Minimal Specimens: None Implants: None Findings: Above
[2017-08-01 16:30] VITALS: BP 159/95
== END 2017-08-01 10:26 | disposition home or self-care (01) ==
LOC: SUR 10:25
PROVIDERS: ATTEND Orthopaedic Surgery
PROC: 0JJV3ZZ Inspection of Upper Extremity Subcutaneous Tissue and Fascia, Percutaneous Approach (ICD-10-PCS; principal; 2017-08-01 14:45)
DX: M96.89 Other intraoperative and postprocedural complications and disorders of the musculoskeletal system (principal); L08.89 Other specified local infections of the skin and subcutaneous tissue; I10 Essential (primary) hypertension; J45.40 Moderate persistent asthma, uncomplicated; J44.9 Chronic obstructive pulmonary disease, unspecified; F31.89 Other bipolar disorder; F17.200 Nicotine dependence, unspecified, uncomplicated; Z68.33 Body mass index [BMI] 33.0-33.9, adult

== ENCOUNTER 2018-10-14 06:19 | Inpatient (IN) ==
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
[~2018-10-14 06:19] MED LIST changes: +EPINEPHRINE IJ PRN; +NORMAL SALINE IJ PRN; -RINGER'S SOLUTION,LACTATED 1,000 ML IV PRN; +ROPIVACAINE HCL IJ PRN; +TRANEXAMIC ACID 1,000 MG in NORMAL SALINE 100 ML IV PRN
[2018-10-14] MEDS: RINGER'S SOLUTION,LACTATED 1,000 ML IV PRN ×3 (07:04→09:45)
[2018-10-14] MEDS ORDERED: MAG HYDROX/ALUMINUM HYD/SIMETH 30 ML UDC PO PRN (09:34)
[2018-10-14] MEDS ORDERED: ZOLPIDEM TARTRATE 5 MG TABLET PO PRN (09:34)
[2018-10-14] MEDS ORDERED: diphenhydrAMINE HCL 50 MG/ML VIAL IV PRN (09:34)
[2018-10-14] MEDS ORDERED: ONDANSETRON HCL/PF 2 MG/ML VIAL IV PRN (09:34)
[2018-10-14] MEDS ORDERED: MAGNESIUM HYDROXIDE 30 ML UDC PO PRN (09:34)
[2018-10-14] MEDS ORDERED: ACETAMINOPHEN 500 MG TABLET PO PRN (09:34)
[2018-10-14] MEDS ORDERED: POTASSIUM CHLORIDE 10 MEQ TABLET.SA PO PRN (09:37)
[2018-10-14] MEDS ORDERED: rOPINIRole HCL 1 MG TABLET PO PRN (09:37)
[2018-10-14] MEDS ORDERED: ALBUTEROL SULFATE 2.5 MG/0.5 ML VIAL.NEB IH PRN (09:37)
[2018-10-14] MEDS ORDERED: CYCLOBENZAPRINE HCL 10 MG TABLET PO PRN (09:37)
[2018-10-14] MEDS ORDERED: FLUTICASONE PROPIONATE 120 SPRAY INHALER NS PRN (09:38)
--- NOTE | 2018-10-14 09:40 | OR ---
Operative Report - Dictated Report Narrative: Date: 10/14/2018 Preoperative diagnosis: Right Knee degenerative joint disease. Postoperative diagnosis: Right Knee degenerative joint disease. Procedure: Right Total knee arthroplasty. Surgeon: Sukhdev Chowdary M.D. Advertising Editor: Nicho Pacheco PA-C (provided and essential set of skilled, educated hands that assisted with transfer, positioning, prepping, draping, manipulation, retraction, placement of jigs, injection, insertion of implants, irrigation, closure wounds, and dressings all of which could not be performed by the available surgical crew) Anesthesia: Spinal with regional block and local periarticular joint injection. Complications: None Specimens: Bone for disposal. Estimated blood loss: Minimal. Tourniquet time: 75 Minutes at 325 millimeters of mercury. Retained implants: Depuy Attune size 4 right lugged cemented posterior stabilized femoral comp onent. Size 4 fixed-bearing cemented tibial platform. 4 by 5 millimeter posterior stabilized cross-linked tibial insert. 35 millimeter medialized patella button. Indications: Mrs. Deshpande is a 57-year-old female who has had long-standing right knee pain and arthrosis. This patient was followed in my clinic for period of time with significant complaints of right knee pain consistent with arthritic changes. She had failed conservative measures including, but not limited to, activity modification, passage of time, medications, and other conservative measures. Patient wished to proceed with surgical treatment. The risks, benefits, and alternatives were discussed in clinic. The risks of , blood clots, bleeding, infection, nerve/tendon blood vessel/ injury, malposition of components, intraoperative fracture, postoperative limited range of motion, persistent pain, failure of components, and need for additional procedures. Patient wished to proceed consent was obtained after answering all questions. Procedure: After marking the correct extremity on the floor, the patient was taken to the operating room. A timeout was performed. IV antibiotics consisting of Ancef were administered prior to the procedure. A regional followed by spinal anesthetic was induced by anesthesia, per my request, on the operative table with all bony prominences well-padded. Roper catheter was tony arsalan, and a bump was placed under the operative side buttock. SCDs and ENEDELIA hose were utilized on the nonoperative leg. A well-padded tourniquet was applied to the operative thigh. The operative leg was then pre-scrubbed with alcohol, prepped, and draped in a standard sterile fashion. After exsanguinating the extremity with an Esmarch bandage, the tourniquet was inflated. After marking out the anterior knee for standard incision centered over the patella, the skin was incised and dissected down to the joint retinaculum. The joint retinaculum was marked out as well as the horizontal axis of the patella, and a standard medial parapatellar arthrotomy was then made. The most proximal aspect of the quadriceps tendon and the patella tendon insertion were protected from release. A partial synovectomy was performed as well as a resection of the infrapatellar fat pad. The distal femoral fat pad proximal to the trochlea was also resected using cautery. The soft tissues were elevated off the medial aspect of the proximal tibia using a Calderon elevator ensuring that we did not transect the medial collateral ligament. Upon initial evaluation range of motion was approximately 0 degrees to 130 degrees of flexion. There were signs of advanced arthrosis in the medial and patellofemoral joint spaces. There were large marginal osteophytes which were removed with a rongeur. The knee was hyperflexed and the patella was tucked laterally. Protecting the surrounding soft tissues with Homans, an entry drill was placed down the femoral canal using Whitesides line for guidance into the entry point. The intramedullary femoral alignment anna was utilized in order to cut the distal femur in 5 degrees of valgus resecting 10 millimeters of bone. Next the distal femur was sized to a size 4. A posterior referencing guide was utilized to place the distal femoral cutting block in 3 degrees of external rotation. This was pinned into place. The rotation was confirmed both visually and based on anatomic landmarks. The 4 in 1 cutting jig of the appropriate size was utilized in order to make all bony cuts. The angle wing was used to ensure no notching. Retractors were utilized in order to protect surrounding soft tissues. This cut did not result in any excessive notching. We then cut the box centered over the distal femur. This allowed for resection of the anterior and posterior cruciate ligaments. I then turned my attention to the preparation of the tibia. Using an extra medullary tibial alignment anna, 3 millimeters of bone was resected off the medial articular surface. This was made perpendicular to the mechanical axis of the joint with the alignment anna centered over the ankle mortise. The alignment anna was checked and was noted to be parallel to the mechanical axis, centered over the medial one third of the tibial tubercle, paralleling the anterior surface of the tibia. We then turned our attention to the remaining meniscus and soft tissues. These were removed while protecting the surrounding ligaments and soft tissues. The marginal osteophytes off the anterior, posterior, medial, lateral aspects of the femur and tibia were removed. The tibia was sized out to a size 4. Next the tibia was drilled and punched in an externally rotated position. Next the trial femur and a series of tibial inserts were utilized in order to allow for full extension and maximal flexion. It was found that a 5 millimeter insert gave the best range of motion and stability at multiple flexion points as well as at full extension there was less than 2 mm of gapping both medially and laterally. There is minimal anterior translation with the knee at 90 degrees of flexion and no signs of being able to dislocate the knee. The patella was then prepared. The initial thickness was 20 millimeters. This was reamed down to 11 millimeters parallel to the anterior surface of the patella. It was sized out to a size 35 medialized patella button. This was then drilled and trialed. Without any medial restraint the patella tracked appropriately and did not sublux or dislocate. At this point, it was felt these were the appropriate sized implants, and all trials were removed. The standard periarticular joint injection consisting of ropivacaine, Toradol, and epinephrine were injected into the periarticular joint tissues. The bony surfaces were thoroughly irrigated with a pulsatile-suction saline irrigation device. A bone plug from the prior resected anterior chamfer cut was placed into the drill hole at the distal femur. The bony surfaces were then dried in preparation for placement of the implants. The cement was vacuum mixed per the surtass analyst's instructions. The cement was placed on the dry bony surfaces and posterior aspect of the implants. The implants were impacted into place, removing all extruded cement. At this point anesthesia administered tranexamic acid per protocol intravenously. The knee was placed in extension with axial loading with the trial insert while the cement cured. Once the cement cured, all remaining extruded cement was removed. The knee was placed through a range of motion with the trial insert to ensure appropriate range of motion and stability. Final range of motion was approximately 0 to 130 degrees. The knee was again thoroughly irrigated with pulsatile saline lavage. The final polyethylene insert was then impacted into place ensuring no retained soft tissues. The remaining periarticular joint injection was injected. A medium Hemovac drain was placed exiting superior laterally. The knee was then placed over a triangle and the arthrotomy was closed with interrupted #1 Vicryl after thoroughly irrigating the joint. The deep and subcutaneous tissues were closed with interrupted 0 and 3-0 Vicryl respectively. Skin was closed with a running subcutaneous 3-0 Monocryl and Prineo Dermabond dressing. 4 x 4's, Sof-Rol, and a full leg Edy wrap were applied. All sponge, needle, blade, and instrument counts were correct prior to closing the wounds. Postoperative condition: The patient was awoken and transferred to the postanesthesia care unit in stable condition. Plan is to be admitted to the inpatient medical/surgical floor postoperatively for 24 hours of IV antibiotics, physical therapy, occupational therapy, and medical comanagement. Patient will be weightbearing as tolerated with range of motion as tolerated. DVT prophylaxis will be with SCDs, ENEDELIA hose, and pharmacological anticoagulation. Anticipated hospital stay is approximately 1-3 days.
--- NOTE | 2018-10-14 09:59 | ANES ---
Post Anesthesia Discharge - Transfer of Care Transfer of Care handoff given to nurse: Yes - Discharge from PACU Discharge from PACU when meets criteria: Yes - Awake and comfortable.
--- NOTE | 2018-10-14 10:00 | ANES ---
Anesthesia Procedure Note Procedure Note: ANESTHESIA PROCEDURE NOTE Date of Procedure: 10/14/2018 Time of procedure: 8 AM. Performed by: Shakir Daugherty CRNA, MSN [employer] Technician: Samantha Styles RN. Preprocedure diagnosis: Post right total knee arthroplasty pain relief. Post procedure diagnosis: Same. Procedure: Right Adductor Canal Block. Indications: Post right total knee arthroplasty pain relief. Findings: See below. Details of the procedure: The patient was brought to OR for and placed in supine position. The patient's right femoral area to the knee was prepped with chlorhexidine and using ultrasound guidance the right femoral artery wasidentified at approximately the proximal one third femur. Under ultrasound guidance the saphenous nerve was approached with visualization of a 4 inch shielded block needle approaching the adductor canal just under the sartorius muscle. Once saphenous nerve was identified with proximity to the needle tip, the saphenous nerve was surrounded with 30 mL bupivacaine 0.25% with 1-200,000 epinephrine. Please see radiology/ultrasound report for details and retained images of the procedure. EBL: 0 Fluids: N/A. Specimen: N/A. Post procedure condition: The patient tolerated the procedure well. No complications were noted. Thank you for this consultation. Shakir Daugherty CRNA, MSN
[2018-10-14] MEDS: oxyCODONE HCL/ACETAMINOPHEN 1 TAB TABLET PO PRN ×3 (11:04→21:31)
[2018-10-14] MEDS: ALPRAZolam 1 MG TABLET PO SCH ×3 (12:08→21:35)
[2018-10-14] MEDS: MORPHINE SULFATE 2 MG/ML DISP.SYRIN IV PRN ×5 (12:13→16:41)
[2018-10-14] MEDS: DEXTROSE 5%-LACTATED RINGERS 1,000 ML IV PRN ×2 (12:20→22:22)
[2018-10-14] MEDS: ceFAZolin SODIUM 1 GM in DEXTROSE 5 % IN WATER 100 ML IV SCH ×4 (12:31→19:22)
--- NOTE | 2018-10-14 12:44 | ANES ---
Post Anesthesia Assessment - Vital Signs Vitals: Last Vital Signs Temp 36.6 C 10/14/18 12:04 Pulse 86 10/14/18 12:04 Resp 18 10/14/18 12:04 BP 166/88 H 10/14/18 12:04 Pulse Ox 95 10/14/18 12:04 Airway Patency: Normal - Mental Status Level Of Consciousness: Awake, Alert - Pain Level Pain Score: 0 - N/V Assessment Nausea/Vomiting Presence: None Dehydration:: No
[2018-10-14] MEDS: MORPHINE SULFATE 15 MG TABLET.SA PO SCH (21:31)
[2018-10-14] MEDS: FLUTICASONE PROPION/SALMETEROL 14 PUFF DISK.W.DEV IH SCH (21:33)
[2018-10-14] MEDS: DILTIAZEM HCL 60 MG CAP.SR.12H PO SCH (21:33)
[2018-10-14] MEDS: SALSALATE 500 MG TABLET PO SCH (21:34)
[2018-10-14] MEDS: DIVALPROEX SODIUM 250 MG TABLET.DR PO SCH (21:34)
[2018-10-14] MEDS: SENNOSIDES/DOCUSATE SODIUM 1 TAB TABLET PO SCH (21:35)
[2018-10-15] MEDS: ceFAZolin SODIUM 1 GM in DEXTROSE 5 % IN WATER 100 ML IV SCH ×2 (01:03)
[2018-10-15] MEDS: oxyCODONE HCL/ACETAMINOPHEN 1 TAB TABLET PO PRN ×4 (02:43→19:34)
[2018-10-15] MEDS: MORPHINE SULFATE 2 MG/ML DISP.SYRIN IV PRN ×2 (03:43→05:15)
[2018-10-15 05:45] LABS: Hematocrit 38.9 % (37.0-47.0); Hemoglobin 13.1 gm/dL (12.5-16.0); Mean Cell Volume 89.2 fl (78-100); Mean Corpuscular Hgb Conc 33.7 g/dl (32-36); Mean Platelet Volume 10.7 fl (8-12.5); Platelet Count 127 K/mm3 (150-450); Red Blood Count 4.36 M/mm3 (4.2-5.4); Red Cell Distribution Width 12.4 % (11.5-14.0)
[2018-10-15 05:50] LABS: Anion Gap 12.3 mmol/L (6.8-13.8); BUN/Creatinine Ratio 11.4 (9.0-21.6); Calcium * 8.3 mg/dL (7.9-10.9); Carbon Dioxide 28.7 mmol/L (24-32.6); Estimated Creat Clear 77.7
[2018-10-15] MEDS: ENOXAPARIN SODIUM 40 MG/0.4 ML SYRG SC SCH (07:57)
[2018-10-15] MEDS: FLUTICASONE PROPION/SALMETEROL 14 PUFF DISK.W.DEV IH SCH ×2 (08:00→21:19)
[2018-10-15] MEDS: SALSALATE 500 MG TABLET PO SCH ×2 (08:00→21:20)
[2018-10-15] MEDS: DIVALPROEX SODIUM 250 MG TABLET.DR PO SCH ×2 (08:00→21:20)
[2018-10-15] MEDS: MORPHINE SULFATE 15 MG TABLET.SA PO SCH ×2 (08:04→21:19)
[2018-10-15] MEDS: ALPRAZolam 1 MG TABLET PO SCH ×4 (08:05→21:22)
--- NOTE | 2018-10-15 16:25 | PN ---
Subjective - Date and Time Seen Date: 10/15/18 Time: 07:40 Subjective Narrative: Subjective: Reports pain. Was able to get to the chair with therapy. She falls asleep during conversation. She states that her knee is more painful this time that it was last time . Voiding without any complications. Tolerating by mouth intake. Denies any nausea or vomiting. Denies calf pain. Physical exam: Alert and oriented to person, place and time Right lower extremity: Palpable dorsalis pedis pulse. Sensation grossly intact to light touch. Dressings clean and dry. Able to flex and extend ankle and toes. No excessive drainage. Calf and thigh are soft and nontender. Assessment: Postop day 1 status post right total knee arthroplasty. Plan: Due to the need for pain control, post-operative limited mobility, protection of the surgical site and joint, monitoring of the wound, and the management of chronic medical conditions, she requires continued inpatient care. Continue with physical and occupational therapy weightbearing as tolerated. Continue with anticoagulation. 24 hours postoperative prophylactic antibiotics. Pain control with goal to rely on oral medications. Continue bowel regimen. Will need 6 weeks with walker or assitive device to protect joint while ambulating during the recovery process. Discharge planning. Discontinue drain and Roper catheter. We reviewed that her pain control is good to be limited based on her sedation and that she should continue with ice and we will change her dressing which may be causing some increased pressure. Goal is for discharge to home tomorrow if she meets her physical therapy goals. Objective - Vitals Vitals: Last Vital Signs Temp 36.8 C 10/15/18 15:20 Pulse 97 10/15/18 15:20 Resp 20 10/15/18 15:20 BP 152/79 H 10/15/18 15:20 Pulse Ox 96 10/15/18 15:20 - Abnormal Lab Findings Abnormal Lab Findings: Abnormal Lab Results 10/15/18 10/15/18 Range/Units 05:25 05:25 Plt Count 127 L (150-450) K/mm3 Random Glucose 158 H (70-110) mg/dL Cauti Physician Documentation - Urinary Catheter Management Urethral (Roper) Date of Insertion: 10/14/18 Time of Insertion: 08:20 Date of Removal: 10/15/18 Time of Removal: 06:37 Assessment/Plan - Problems/Diagnosis (1) Acute blood loss anemia Problem: Acute (2) Asthmatic bronchitis , chronic Problem: Chronic (3) Benign essential hypertension Problem: Chronic (4) Bipolar disorder Problem: Chronic Qualifiers: (5) Major depression, recurrent Problem: Chronic Qualifiers: (6) Marijuana use Problem: Chronic (7) PUD (peptic ulcer disease) Problem: Chronic (8) RLS (restless legs syndrome) Problem: Chronic (9) Tobacco abuse Problem: Chronic (10) Total knee replacement status Problem: Acute Qualifiers: Laterality: right Qualified Code(s): Z96.651 - Presence of right artificial knee joint
[2018-10-15] MEDS: DILTIAZEM HCL 60 MG CAP.SR.12H PO SCH (21:19)
[2018-10-15] MEDS: SENNOSIDES/DOCUSATE SODIUM 1 TAB TABLET PO SCH (21:21)
[2018-10-16] MEDS: oxyCODONE HCL/ACETAMINOPHEN 1 TAB TABLET PO PRN ×2 (03:19→09:23)
[2018-10-16] MEDS: ENOXAPARIN SODIUM 40 MG/0.4 ML SYRG SC SCH (07:36)
[2018-10-16] MEDS: MORPHINE SULFATE 15 MG TABLET.SA PO SCH (08:20)
[2018-10-16] MEDS: DIVALPROEX SODIUM 250 MG TABLET.DR PO SCH (08:21)
[2018-10-16] MEDS: ALPRAZolam 1 MG TABLET PO SCH ×2 (08:21→13:16)
[2018-10-16] MEDS: FLUTICASONE PROPION/SALMETEROL 14 PUFF DISK.W.DEV IH SCH (08:21)
[2018-10-16] MEDS: SALSALATE 500 MG TABLET PO SCH (08:21)
--- NOTE | 2018-10-16 12:55 | DS ---
(1) Acute blood loss anemia Problem: Acute (2) Asthmatic bronchitis , chronic Problem: Chronic (3) Benign essential hypertension Problem: Chronic (4) Bipolar disorder Problem: Chronic Qualifiers: (5) Major depression, recurrent Problem: Chronic Qualifiers: (6) Marijuana use Problem: Chronic (7) PUD (peptic ulcer disease) Problem: Chronic (8) RLS (restless legs syndrome) Problem: Chronic (9) Tobacco abuse Problem: Chronic (10) Total knee replacement status Problem: Acute Qualifiers: Laterality: right Qualified Code(s): Z96.651 - Presence of right artificial knee joint Description of Stay: Mrs. Deshpande was admitted to the floor after undergoing right total knee arthroplasty. Tolerated this well. Was admitted to the floor postoperatively for 24 hours of IV antibiotics, pain control, medical comanagement, and occupational and physical therapy. OT and PT were consulted to assist with activities of daily living and ambulation. Was made weightbearing as tolerated with range of motion as tolerated. Pain was initially controlled with IV daysi men. This was transitioned to oral once tolerating a by mouth intake. Was resumed on home diet and medications. Had a Roper catheter inserted and the operating room which was discontinued on postoperative day 1. A drain was placed intraoperatively into the knee which was discontinued on postoperative day 1. Lovenox SCD and ENEDELIA hose were utilized for DVT prophylaxis. Vital signs remained stable to the hospital course. Serial labs were obtained which showed a final hemoglobin of 13.1 grams. BMP was reviewed and was stable. Physical examination throughout the hospital course showed an extremity that had sensation that was intact to light touch, palpable pulses, a benign wound, motor intact to the toes, ankle, and knee. Knee range of motion was approximately 5 degrees to 50 degrees. Once an oral pain regimen was tolerated and physical therapy goals were met, it was felt that they were stable for discharge to home. Instructions: Continue with weightbearing as tolerated and range of motion as tolerated. It is okay to shower and get the wound wet as long as there is no drainage from the wound. Do not bathe or soak the wound. If there is any drainage from the wound keep the wound clean and dry and cover with dry gauze and tape. Change every 2- 3 days as needed if there is any drainage. Cover wound while showering if there is any drainage. Continue with physical therapy. Resume home diet. Report any fever over 101.5 Fahrenheit, uncontrolled pain, increased drainage, foul odor of drainage, new or increased calf pain or shortness of breath, or any other significant complaints. A 325mg dialy aspirin will be started after finishing anticoagulation if not allergic. Continue with ENEDELIA hose on the operative extremity until instructed otherwise. No driving until instructed otherwise. Follow up in approximately 10-14 days. Procedures Performed: see notes below List Procedures: Right total knee arthroplasty Results and Findings: Lab Pending Results 10/15/18 05:25: WBC 10.0, RBC 4.36, Hgb 13.1, Hct 38.9, MCV 89.2, MCH 30.0, MCHC 33.7, RDW 12.4, Plt Count 127 L, MPV 10.7 10/15/18 05:25: Sodium 136, Plasma Sodium 137, Potassium 4.0, Chloride 99, Carbon Dioxide 28.7, Anion Gap 12.3, BUN 8, Creatinine 0.70, Est GFR (Non-Af Amer) 91 D, BUN/Creatinine Ratio 11.4, Random Glucose 158 H, Calcium 8.3 Discharge Location: Home Disposition: Home self-care Condition: Good Discharge Activity: Activity as tolerated, Weight bearing Discharge Diet: General/regular food Referrals: Giovany Alexandra MD [Primary Care Provider] - Additional Patient Instructions (free text): Physical Therapy appointment at [facility] outpatient rehab on Friday the at 9:15am. Follow up 's office on Nov.03 at 13:45pm. Prescriptions (Any new or edited meds): Enoxaparin Sodium [Lovenox] 40 mg SC Q24H #7 disp.syrin Morphine Sulfate [Ms Contin] 15 mg PO Q12H #20 tablet.sa oxyCODONE HCL/ACETAMINOPHEN [Percocet 5 MG/325 MG] 2 tab PO Q4H PRN #90 tab PRN Reason: Moderate Pain (Pain Scale 4-6) Sennosides/Docusate Sodium [Senokot-S] 2 tab PO HS #60 tablet Complete Home Medications List: Complete Home Medication List: rOPINIRole HCL [Requip] 2 mg PO HS PRN 11/07/16 Cyclobenzaprine HCl [Flexeril] 10 mg PO Q12H PRN 06/27/17 Albuterol Sulfate [Ventolin HFA] 2 puff IH Q6H PRN 03/31/18 budesonide-formoterol HFA 160 mcg-4.5 mcg/actuation aerosol inhaler 2 puff IH BID #6 g 04/16/18 salsalate 750 mg tablet 1,500 mg PO BID #30 tab 04/16/18 diltiazem ER 120 mg capsule,extended release 12 hr 120 mg PO HS #30 cap 09/01/18 valproic acid 250 mg capsule 250 mg PO BID #60 cap 09/01/18 alprazolam 1 mg tablet See Rx Instructions PO QID tab 10/08/18 Fluticasone Propionate [Flonase] 1 spray INTRANASAL PRN PRN 10/14/18 Potassium Chloride [Klor-Con Sprinkle] 8 meq PO PRN PRN 10/14/18 Enoxaparin Sodium [Lovenox] 40 mg SC Q24H #7 disp.syrin 10/16/18 Morphine Sulfate [Ms Contin] 15 mg PO Q12H #20 tablet.sa 10/16/18 Sennosides/Docusate Sodium [Senokot-S] 2 tab PO HS #60 tablet 10/16/18 oxyCODONE HCL/ACETAMINOPHEN [Percocet 5 MG/325 MG] 2 tab PO Q4H PRN #90 tab 10/16/18 Amb Orders for Discharge: PT Evaluation and Treatment* Facility: [facility], Location: Rehabilitation Services
[2018-10-16 13:57] VITALS: BP 126/54
== END 2018-10-16 14:12 | disposition home or self-care (01) | DRG 470 ==
LOC: MS 06:19 → EDSTATUS 08:00
PROVIDERS: ADMIT Orthopaedic Surgery; ATTEND Orthopaedic Surgery
CPT/HCPCS: 36415; 73560; 80048; 85027; 97110; 97116; 97161; 97165; 97530; 97535

== ENCOUNTER 2019-07-05 08:32 | Inpatient (IN) ==
[~2019-07-05 08:32] MED LIST changes: -EPINEPHRINE IJ PRN; +MORPHINE SULFATE 15 MG TABLET.SA PO PRN; -NORMAL SALINE IJ PRN; -ROPIVACAINE HCL IJ PRN; +ROPIVACAINE HCL/PF 100 MG, EPINEPHrine 0.2 MG, KETOROLAC TROMETHAMINE 30 MG in NORMAL S... IJ PRN
[2019-07-05] MEDS: RINGER'S SOLUTION,LACTATED 1,000 ML IV PRN ×2 (09:11→10:35)
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
[2019-07-05] MEDS ORDERED: MORPHINE SULFATE 2 MG/ML DISP.SYRIN IV PRN (11:47)
[2019-07-05] MEDS ORDERED: ZOLPIDEM TARTRATE 5 MG TABLET PO PRN (11:47)
[2019-07-05] MEDS ORDERED: ONDANSETRON HCL/PF 2 MG/ML VIAL IV PRN (11:47)
[2019-07-05] MEDS ORDERED: DEXTROSE 5%-LACTATED RINGERS 1,000 ML IV PRN (11:47)
[2019-07-05] MEDS ORDERED: diphenhydrAMINE HCL 50 MG/ML VIAL IV PRN (11:47)
[2019-07-05] MEDS ORDERED: ACETAMINOPHEN 500 MG TABLET PO PRN (11:47)
[2019-07-05] MEDS ORDERED: MAGNESIUM HYDROXIDE 30 ML UDC PO PRN (11:47)
[2019-07-05] MEDS ORDERED: MAG HYDROX/ALUMINUM HYD/SIMETH 30 ML UDC PO PRN (11:47)
[2019-07-05] MEDS ORDERED: rOPINIRole HCL 1 MG TABLET PO PRN (11:50)
[2019-07-05] MEDS ORDERED: POTASSIUM CHLORIDE 8 MEQ PO PRN (11:50)
[2019-07-05] MEDS ORDERED: ALBUTEROL SULFATE 2.5 MG/0.5 ML VIAL.NEB IH PRN (11:50)
--- NOTE | 2019-07-05 11:54 | OR ---
Operative Report - Dictated Report Narrative: Date: 07/05/2019 Preoperative diagnosis: Left hip degenerative joint disease. Postoperative diagnosis: Left hip degenerative joint disease. Procedure: Left total hip arthroplasty. Surgeon: Sukhdev Chowdary M.D. Surgical Forceps Fabricator: London Burk PA-C (provided an essential set of skilled, educated and assisted with transfer, positioning, prepping, draping, manipulation, traction, irrigation, suturing, and placement of dressings all of which cannot be performed by the available surgical crew) Anesthesia: Spinal and local periarticular joint injection. Complications: None Specimens: Bone. Estimated blood loss: 150 milliliters. Retained implants: Depuy [place] size 4 femoral stem standard offset. Size 48 millimeter outside diameter 3-hole Jay Gription acetabular cup. 48 millimeter outside by 32 millimeter inside diameter highly cross-linked acetabular liner. 32 millimeter diameter +1.5 millimeter ceramic femoral head. Cancellous 6.5mm screw 30 millimeter length Indications: Mrs. Deshpande is a 58-year-old female who has had long-standing left hip pain and arthrosis. This patient was followed in my clinic for period of time with significant complaints of left hip pain consistent with arthritic changes. She failed conservative measures including but not limited to activity modification, passage of time, medications, and other conservative measures. Patient wished to proceed with surgical treatment. The risks, benefits, and alternatives were discussed in clinic. The risks of , blood clots, bleeding, infection, nerve/tendon blood vessel/ injury, malposition of components, dislocation and/or instability of joint, intraoperative fracture, postoperative limited range of motion, persistent pain, failure of components, and need for additional procedures. Patient wished to proceed. Consent was obtained after answering all questions. Procedure: After marking the correct extremity on the floor, the patient was taken to the operating room. A timeout was performed. IV antibiotics consisting of Ancef were administered prior to the procedure. A spinal anesthetic was induced by anesthesia. A Roper catheter was inserted. The patient was then transitioned to a lateral position on a well-padded pegboard. An axillary roll was placed. The head was in neutral position. The non- operative down leg was well-padded with SCD and ENEDELIA hose in place. The arms were supported and padded to protect from any undue pressure on the bony prominences and nerves. A well-padded anterior and posterior pelvic and chest posts were secured in order to maintain a stable position of the pelvis. This was placed so that the pelvis was perpendicular to the floor. The body was in line with the pelvis. Once it was felt that we had protected all the bony prominences and the patient was well secured with a safety belt as well, the leg was pre-scrubbed with alcohol, prepped and draped in a standard sterile fashion. A standard anterior lateral hip incision was marked out over the greater trochanter. Ioban drapes were then placed. The skin incision was then made. Sharp dissection with a scalpel utilizing cautery for hemostasis was carried out down to the gluteus and iliotibial band fascia. This was split in line with the skin incision. The greater trochanter bursa was excised. The anterior and posterior margins of the abductor tendon were identified. The anterior 1/2-1/3 of the tendon was tagged and reflected off the greater trochanter leaving a sleeve of tendon for repair at the completion of the case. This exposed the underlying hip joint capsule. A limb length stitch was placed in the skin and referencedd off a brian on the greater trochanter for evaluation of intraoperative limb lengths. An inverted T-type capsulotomy was made extending this up to the brim of the acetabulum. Using Homans to assist with elevation of the soft tissues off the anterior, superior, and inferior aspects of the femoral neck, the hip was then placed in a figure 4 position and the femoral head was dislocated. With the leg in an externally rotated and adducted position, the cutting flag was utilized in order to brian for a standard femoral neck cut approximately a fingerbreadth above the level of the lesser trochanter. This was done with reference to pre-operative films and overall alignment. This was done while protecting the surrounding soft tissues with Homans. The femoral head was then removed and sized for guidance on preparation of the acetabulum. It was noted that there was loss of articular cartilage on both the femoral head and weightbearing portions of the acetabulum. We then returned the leg to the table and turned our attention to the acetabulum. While protecting the surrounding soft tissues, the labrum and remaining tissue in the fovea were excised using a scalpel and cautery. A series of reamers up to size 48 millimeter were utilized to prepare the acetabulum. The final reamer had good purchase and exposed the bleeding subchondral bone. The acetabulum was then thoroughly irrigated ensuring that all bony and cartilaginous materials were removed, and the final acetabular shell was impacted into place. This was placed in approximately 45 degrees of abduction and 20 degrees of anteversion utilizing the outrigger and body axis for alignment. This had a good press fit. 1 6.5mm cancellous screw was placed in the superior posterior quadrant of the acetabulum. The shell was then thoroughly irrigated and the final polyethylene was impacted into place ensuring that it seated completely. This was then protected with a sponge while we returned our attention to the femur. With the leg in a figure 4 position, utilizing Homans for soft tissue protection, a box cutting osteotome, followed by Charnley awl, followed by serial reamers and broaches were utilized in order to prepare the femur. It was found that a size 4 broach gave good axial and rotational stability. The calcar reamer was utilized in order to clean up the cut edges. The proximal femur was visualized to ensure that there were no signs of fracture. A series of heads and necks were trialed. It was found that a standard offset neck and a + 1.5 femoral head gave good overall stability. There was minimal longitudinal instab ility. With the leg in the position of sleep, the femoral head was well covered. Hip range of motion was able to reach full extension and external rotation to greater than 75 degrees prior to impingement along the posterior acetabulum. The hip was able to be flexed to greater than 90 degrees with internal rotation greater than 60 degrees prior to anterior impingement. The limb lengths were near equal based on comparison to the contralateral side and the prior placed limb length stitch. At this point it was felt these were the appropriately sized femoral components as well as neck and femoral head. The trial implants were removed. The femur was thoroughly irrigated. The final implants were impacted into place, and the hip was reduced. After ensuring that there was no damage to the proximal femur, the standard periarticular joint injection of ropivacaine, Toradol, and epinephrine were injected into the joint capsule and surrounding soft tissues. Anesthesia then administered intravenous tranexamic acid. The capsule was repaired with a single interrupted #1 Vicryl. The abductor tendon was repaired to the greater trochanter utilizing #5 Ethibond through drill holes. This was oversewn with #1 Vicryl. The fascia was closed with interrupted #1 Vicryl and strata fix barbed suture. The wounds were thoroughly irrigated as we closed in layers. The deep and subcutaneous fat layers were closed with 0 and 3-0 Vicryl respectively. The subcutaneous tissue was closed with a running 3-0 Vicryl and the skin cyndi. All sponge, needle, blade, and instrument counts were correct prior to closing the wounds. Sterile dressings consisting of xeroform, 4 x 4's, and tape were applied. The patient was awoken and transferred to her hospital bed and then to the postanesthesia care unit in stable condition. Postoperative condition: The plan is to admit to the medical/surgical inpatient floor postoperatively. There will be a projected 1 to 3 day hospital stay. Postoperatively 24 hours of IV antibiotics, pain control, physical therapy, occupational therapy, and medical comanagement will be utilized. Patient will be weightbearing as tolerated with anterior hip precautions. Postoperative films will be obtained in the recovery room.
--- NOTE | 2019-07-05 12:09 | ANES ---
Post Anesthesia Discharge - Transfer of Care Transfer of Care handoff given to nurse: Yes - Discharge from PACU Discharge from PACU when meets criteria: Yes - Discharge to ASU Discharge to ASU-no complications/pt stable: Yes
[2019-07-05] MEDS: ALPRAZolam 1 MG TABLET PO SCH ×3 (12:42→21:59)
[2019-07-05] MEDS: ceFAZolin SODIUM 1 GM in DEXTROSE 5 % IN WATER 100 ML IV SCH ×4 (13:04→20:10)
[2019-07-05] MEDS: oxyCODONE HCL/ACETAMINOPHEN 1 TAB TABLET PO PRN ×2 (13:51→18:03)
[2019-07-05] MEDS: FLUTICASONE PROPION/SALMETEROL 14 PUFF DISK.W.DEV IH SCH ×2 (20:09→20:18)
[2019-07-05] MEDS ORDERED: MORPHINE SULFATE 15 MG TABLET.SA PO SCH (21:00)
[2019-07-05] MEDS ORDERED: DILTIAZEM HCL 240 MG CAP.SR.24H PO SCH (21:00)
[2019-07-05] MEDS ORDERED: SENNOSIDES/DOCUSATE SODIUM 1 TAB TABLET PO SCH (21:00)
[2019-07-06] MEDS: ceFAZolin SODIUM 1 GM in DEXTROSE 5 % IN WATER 100 ML IV SCH ×2 (01:44)
[2019-07-06 06:07] LABS: Hematocrit 38.2 % (37.0-47.0); Hemoglobin 12.9 gm/dL (12.5-16.0); Mean Cell Volume 90.5 fl (78-100); Mean Corpuscular Hemoglobin 30.6 pg (27-31); Mean Corpuscular Hgb Conc 33.8 g/dl (32-36); Platelet Count 177 K/mm3 (150-450); Red Blood Count 4.22 M/mm3 (4.2-5.4); Red Cell Distribution Width 13.2 % (11.5-14.0); White Blood Count 6.8 K/mm3 (4.0-10.5)
[2019-07-06 06:12] LABS: Anion Gap 8.4 mmol/L (6.8-13.8); BUN/Creatinine Ratio 15.4 (9.0-21.6); Calcium * 8.2 mg/dL (7.9-10.9); Carbon Dioxide 30.3 mmol/L (24-32.6); Estimated Creat Clear 68.9; Potassium 3.7 mmol/L (3.4-4.6)
[2019-07-06 06:38] LABS: Cocaine Ur Negative (NEGATIVE); Urine Barbiturate Negative (NEGATIVE); Urine PCP Negative (NEGATIVE)
[2019-07-06 06:42] LABS: Urine Benzodiazepines Positive (NEGATIVE); Urine Opiates Positive (NEGATIVE); Urine THC Positive (NEGATIVE)
[2019-07-06] MEDS ORDERED: CITALOPRAM HYDROBROMIDE 20 MG TABLET PO SCH (09:00)
[2019-07-06] MEDS ORDERED: FLUTICASONE PROPIONATE 120 SPRAY INHALER NS SCH (09:00)
[2019-07-06] MEDS: FLUTICASONE PROPION/SALMETEROL 14 PUFF DISK.W.DEV IH SCH (09:10)
[2019-07-06] MEDS: oxyCODONE HCL/ACETAMINOPHEN 1 TAB TABLET PO PRN (09:12)
[2019-07-06] MEDS: ALPRAZolam 1 MG TABLET PO SCH ×2 (09:12→14:06)
[2019-07-06] MEDS ORDERED: oxyCODONE HCL/ACETAMINOPHEN 1 TAB TABLET PO PRN (10:47)
[2019-07-06] MEDS ORDERED: ENOXAPARIN SODIUM 40 MG/0.4 ML SYRG SC SCH (10:48)
--- NOTE | 2019-07-06 12:17 | DS ---
(1) Methamphetamine abuse Problem: Acute (2) Status post total hip replacement, left Problem: Acute (3) Alcohol use Problem: Chronic (4) Allergic rhinitis Problem: Chronic Qualifiers: (5) Asthmatic bronchitis , chronic Problem: Chronic (6) Benign essential hypertension Problem: Chronic (7) Bipolar disorder Problem: Chronic Qualifiers: (8) Body mass index (BMI) of 33.0 to 33.9 in adult Problem: Chronic (9) Generalized anxiety disorder Problem: Chronic (10) Major depression, recurrent Problem: Chronic Qualifiers: (11) Marijuana abuse Problem: Chronic (12) PUD (peptic ulcer disease) Problem: Chronic (13) RLS (restless legs syndrome) Problem: Chronic (14) Tobacco abuse Problem: Chronic Date of Discharge:: 07/06/19 Description of Stay: Mrs. Deshpande was admitted to the floor after undergoing left total hip arthroplasty. Tolerated this well. Was admitted to the floor postoperatively for 24 hours of IV antibiotics, pain control, medical comanagement, and occupational and physical therapy. OT and PT were consulted to assist with activities of daily living and ambulation. Was made weightbearing as tolerated with anterior hip precautions. Pain was initially controlled with IV regimen. Postop night 1 she was found to have but she reports not have used a narcotic drug paraphernalia pipe which she states was utilized prior to admission for methamphetamine. At this point her pain medications were held and she had a urine drug screen that confirmed that she had methamphetamine as well as marijuana and her normal prescription medications. A conversation was had with her that she will will have to utilize non-narcotic pain medications postoperatively due to this. Was resumed on home diet and medications. Had a Roper catheter inserted and the operating room which was discontinued on postoperative day 1. Lovenox SCD and ENEDELIA hose were utilized for DVT prophylaxis. Vital signs remained stable to the hospital course. Labs were obtained which showed a final hemoglobin of 12.9 grams. BMP was reviewed and was stable. Physical examination throughout the hospital course showed an extremity that had sensation that was intact to light touch, palpable pulses, a benign wound, motor intact to the toes, ankle, and knee. Once an oral pain regimen was tolerated and physical therapy goals were met, it was felt that they were stable for discharge to home. Instructions: Continue with weightbearing as tolerated and anterior hip precautions. Keep the wound clean and dry. Cover while showering. Do not bathe or soak the wound. Cover with dry gauze and tape. Change every 2-3 days as needed if there is any drainage. Cover wound while showering. Continue with physical therapy. Resume home diet. Report any fever over 101.5 Fahrenheit, uncontrolled pain, increased drainage, foul odor of drainage, new or increased calf pain or shortness of breath, or any other significant complaints. A 325mg dialy aspirin will be started after finishing anticoagulation if not allergic. Continue with ENEDELIA hose on the operative extremity until instructed otherwise. No driving until instructed otherwise. Follow up in approximately 1 week. Procedures Performed: see notes below Results and Findings: Lab Pending Results 07/06/19 05:37: WBC 6.8, RBC 4.22, Hgb 12.9, Hct 38.2, MCV 90.5, MCH 30.6, MCHC 33.8, RDW 13.2, Plt Count 177, MPV 11.0 07/06/19 05:37: Sodium 138, Plasma Sodium 138, Potassium 3.7, Chloride 103, Carbon Dioxide 30.3, Anion Gap 8.4, BUN 12, Creatinine 0.78, Est GFR (Non-Af Amer) 80, BUN/Creatinine Ratio 15.4, Random Glucose 129 H, Calcium 8.2 07/06/19 06:05: Urine Opiates Screen Positive H, Barbiturate Screen Negative, Ur Phencyclidine Scrn Negative, Urine Amphetamine Positive H, U Benzodiazepines Scrn Positive H, Urine Cocaine Screen Negative, Urine Marijuana (THC) Positive H Discharge Location: Home Disposition: Home self-care Condition: Fair Discharge Activity: Weight bearing, Other - Anterior hip precautions with no active abduction Discharge Diet: General/regular food Referrals: Giovany Alexandra MD [Primary Care Provider] - Problem Oriented Discharge Instructions to Patient/Family: Total Hip Replacement, Care After, [id number] Additional Patient Instructions (free text): Follow up Physical Therapy at [facility] outpatient rehab on July 08 at 9:45am. Follow up Orthopedic office appointment at Dr Roy on FridayJuly 20 at 1:15pm. Prescriptions (Any new or edited meds): Enoxaparin Sodium [Lovenox] 40 mg SC Q24H #7 disp.syrin Complete Home Medications List: Complete Home Medication List: ToyRole HCL [Requip] 2 mg PO HS PRN 11/07/16 Cyclobenzaprine HCl [Flexeril] 10 mg PO Q12H PRN 06/27/17 salsalate 750 mg tablet 1,500 mg PO BID #30 tab 04/16/18 Potassium Chloride [Klor-Con Sprinkle] 8 meq PO PRN PRN 10/14/18 citalopram 20 mg tablet 20 mg PO DAILY #30 tab 01/06/19 diltiazem ER 240 mg capsule,24 hr,extended release 240 mg PO HS #30 cap 01/06/19 budesonide-formoterol HFA 160 mcg-4.5 mcg/actuation aerosol inhaler 2 puff IH BID #10.2 g 01/08/19 linaclotide 72 mcg capsule 72 mcg PO DAILY #30 cap 02/09/19 alprazolam 1 mg tablet 1 mg PO QID #120 tab 03/09/19 valproic acid 250 mg capsule 250 mg PO BID #60 cap 06/11/19 fluticasone propionate 50 mcg/actuation nasal spray,suspension 2 spray INTRANASAL DAILY g 06/26/19 albuterol sulfate HFA 90 mcg/actuation aerosol inhaler 2 puff IH Q6H PRN #8.5 g 06/29/19 Acetaminophen [Tylenol] 1,000 mg PO Q6H PRN tablet 07/06/19 Enoxaparin Sodium [Lovenox] 40 mg SC Q24H #7 disp.syrin 07/06/19 Sennosides/Docusate Sodium [Senokot-S] 2 tab PO HS tablet 07/06/19 Amb Orders for Discharge: PT Evaluation and Treatment* Facility: [facility], Location: Rehabilitation Services
[2019-07-06 14:40] VITALS: BP 157/87
== END 2019-07-06 14:53 | disposition home or self-care (01) | DRG 470 ==
LOC: MS 08:32
PROVIDERS: ADMIT Orthopaedic Surgery; ATTEND Orthopaedic Surgery
DX: F17.210 Nicotine dependence, cigarettes, uncomplicated; F33.9 Major depressive disorder, recurrent, unspecified; F10.10 Alcohol abuse, uncomplicated; J30.9 Allergic rhinitis, unspecified; F12.10 Cannabis abuse, uncomplicated; I10 Essential (primary) hypertension; F15.10 Other stimulant abuse, uncomplicated; K27.7 Chronic peptic ulcer, site unspecified, without hemorrhage or perforation; G25.81 Restless legs syndrome; F41.8 Other specified anxiety disorders; M16.12 Unilateral primary osteoarthritis, left hip
CPT/HCPCS: 36415; 73502; 80048; 80307; 85027; 97110; 97116; 97161; 97165; 97530; 97535